=== PATIENT | male | born 2005 | race Caucasian/White ===

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

== ENCOUNTER 2025-01-19 17:59 | Emergency (ER) | payer BC, SELFPAY ==
[2025-01-19 18:04] VITALS: BP 143/59; PULSE 124; RESP 20; TEMP 36.6; O2SAT 98; BMI 22.0
--- NOTE | 2025-01-19 18:16 | ED.GENADULT ---
HPI - General Adult General Chief complaint: Ear Problems Stated complaint: rt ear pain Time Seen by Provider: 01/19/25 18:13 Source: patient, RN notes reviewed and old records reviewed Mode of arrival: ambulatory Limitations: no limitations History of Present Illness ED Provider: Natalie SMITH narrative: 19-year-old male presents for evaluation of right ear pain. He reports that he was swimming yesterday His pain so when he woke up this morning. He has pain behind his right ear. He denies any drainage from the ear He denies sticking anything in the ear Denies any fevers or chills Related Data Previous Rx's ?Medication ?Instructions ?Recorded amoxicillin 875 mg-potassium 1 tab PO Q12H #20 tabs 01/19/25 clavulanate 125 mg tablet ciprofloxacin HCl 0.2 % ear drops 5 drp otic (ears) Q12H 7 days #14 01/19/25 in a dropperette ea Allergies Allergy/AdvReac Type Severity Reaction Status Date / Time No Known Allergies Allergy Verified 01/19/25 18:10 [No Known Allergies*] Review of Systems Constitutional: Constitutional: Denies body ache(s), Denies chills and Denies fever(s) ENT: Denies ear discharge, Reports otalgia and Denies sore throat Cardiovascular: Cardiovascular: Denies chest pain and Denies dyspnea Respiratory: Respiratory: Denies cough and Denies dyspnea Musculoskeletal: Musculoskeletal: Denies back pain PMFSH Social History Social History Advance Directives: No Advance Directives Information Provided: No Physical Exam ED Vital Signs: Vital Signs - 24 hr 01/19/25 18:04 01/19/25 18:19 Temperature 97.8 F 97.8 F Pulse Rate 124 H 124 H Respiratory Rate 20 20 Blood Pressure 143/59 H 143/59 H Pulse Oximetry 98 98 Oxygen Delivery Method Room Air Room Air BMI result Body Mass Index 22.0 Const General: healthy appearing, comfortable, no acute distress, alert and awake Nutritional Appearance: well nourished Orientation/consciousness: patient oriented x3 HENMT Other: The patient has no significant periauricular edema but does have some right mastoid tenderness. The right external ear canal has a small abrasion with dried blood in the ear canal. No significant edema or inflammation to the external ear canal on right. There was no otorrhea. The right tympanic membrane is edematous, erythematous and bulging Head: Yes normocephalic and Yes atraumatic Ears: TM normal on the left Eyes Eyelids: Yes eyelids normal Conjunctivae: conjunctivae normal Sclerae: sclerae normal Corneas: corneas normal Pupils: Equal, round and reactive pupils present EOM: EOMs intact bilaterally Neck Neck: Yes full ROM Resp Effort & Inspection: normal respiratory effort, able to speak in complete sentences and not labored Skin General skin exam: elasticity normal Neuro General: patient oriented x3 Cranial nerves: Yes Equal, round and reactive pupils present and Yes Bilaterally intact EOM present Cognition (Neuro): normal cognition Extrem Other: Moving all extremities well without any obvious deformities Medical Decision Making Medical Decision Making MDM Narrative: 19-year-old male presents for evaluation of right ear pain. He was swimming yesterday and has some mastoid tenderness which would indicate otitis externa, however his right tympanic membrane is visualized as erythematous and bulging. We will treat with both Augmentin and ciprofloxacin otic drops Differential Diagnosis Differential Diagnoses: The differential diagnosis associated with the presentation includes Otitis media Otitis externa Mastoiditis Middle ear effusion Discharge Plan Discharge Clinical Impression: Ear pain, right Patient Disposition: Home, Self-Care Instructions: Swimmer's Ear (ED) Additional Instructions: You have an ear infection on the right ear. It is difficult to determine if it is an outer ear or inner ear infection Therefore use the ear drops as well as the antibiotic pills as prescribed Do not stick anything in your ear, including Q-tips Prescriptions: New amoxicillin-pot clavulanate 875-125 mg tablet 1 tab PO Q12H Qty: 20 0RF ciprofloxacin HCl 0.2 % dropperette 5 drp otic (ears) Q12H 7 Days Qty: 14 0RF Interventions: ED Discharge Assessment Last Done: 01/19/25 18:19 Discharge Date/Time: 01/19/25 18:30 Print Language: Yoruba
[2025-01-19 18:19] VITALS: BP 143/59; PULSE 124; RESP 20; TEMP 36.6; O2SAT 98
== END 2025-01-19 18:30 | disposition home or self-care (01) ==
PROVIDERS: Emergency Provider Emergency Medicine; PCP Pediatrics
DX: H92.01 Otalgia, right ear (principal)
CPT/HCPCS: 99282; 99283

== ENCOUNTER 2025-01-30 15:57 | Outpatient (REF) | payer BC, SELFPAY ==
--- OUTSIDE RECORDS SUMMARY | 2025-01-30 17:25 | XMS_ITS | Clinical Summary ---
Author Organization [facility] Address [address] [place] [address] Care Team Providers Care Accounting Lecturer Name Role Phone Cathy Lino MD Primary Care Provider [phone] Source Comments PLEASE NOTE, if this patient is a minor, it may be UNLAWFUL to discuss sensitive information that is contained in these records (such as FAMILY PLANNING, MENTAL HEALTH or SUBSTANCE ABUSE) with the minor patient's parent or other person without the patient's specific authorization.[facility] Allergies No known active allergies Active Problems Problem Noted Date Diagnosed Date Mild intermittent asthma without complication (H HS-HCC) 07/20/2016 Overview (07/20/2016): Exposure to second hand smoke Immunizations Immunization Administration Dates Next Due DTAP (DAPTACEL),5 PERTUSSIS ANTIGENS 01/2008,08/13/2005,04/02/2004,01/18,2003 HEP B, PED/ADOL 04/02/2004,01/19/2004,2003 Hib (PRP-T) 08/13/2005,01/19/2004,2003 INFLUENZA, SEASONAL, INJECTA BLE, PRESERVATIVE FREE 09/14/2014 IPV (IPOL) 10/14/2007, 4,01/19/2004,09/21 MENINGOCOCCAL MCV4P (MENACTRA) 09/14/2014 MMR (MMR II/Priorix) 10/14/2007,10/02/2004 PNEUMOCOCCAL CONJUGATE PCV 7 04/02/2004,01/19/20 04,2003 TDAP 09/14/2014 Varicella (Varivax), Live Vaccine 12/27/2007, Social History Tobacco Use Types Packs/Day Years Used Date Smoking Tobacco: Passive Smo ke Exposure - Never Smoker Smokeless Tobacco: Never Comments:mother Alcohol Use Standard Drinks/Week Comments No 0 (1 standard drink = 0.6 oz pur e alcohol) Social Connections Answer Date Recorded Connectedness 0 04/28/2024 Financial Resource Strain Answer Date R ecorded Financial Resource Strain 0 2022 Stress Answer Date Recorded Stress 0 10/31/2022 Physical Activity Answer Date Recorded Physical Activity 0 10/31/2022 Food Insecurity Answer Date Recorded Food 0 05/05/2024 Transportation Needs Answer Date Record ed Transportation 0 10/31/2022 Housing Stability Answer Date Recorded Housing 0 10/31/2022 Safety and Environment Answer Date Carlos rded Safety 0 10/31/2022 Utilities Answer Date Recorded Utilities 0 10/31/2022 Employment Answer Date Recorded Stress 0 04/28/2024 Sex and Gender Information Value Date Recorded Sex Assigned at Not on file Legal Sex Male 6:45 AM PST Gender Identity Not on file Sexual Orientation Not on file Last Filed Vital Signs Vital Sign Reading Time Taken Comments Blood Pressure 100/60 09/14/2014 1:50 PM EST Pulse 84 09/14/2014 1:50 PM EST Temperature 37.2 C (99 F) 09/14/2014 1:50 PM EST Respiratory Rate 14 09/14/2014 1:50 PM EST Oxygen Saturation - - Inhaled Oxygen Concentration - - Weight 32.7 kg (72 lb) 09/14/2014 1:50 PM EST Height 137.2 cm (4' 6 ) 09/14/2014 1:50 PM EST Body Mass Index 17.36 09/14/2014 1:50 PM EST Plan of Treatment Health Maintenance Due Date Last Done Comments Anxiety Screening 2003 Hepatitis C Screening 2003 Tobacco Screening 2003 Hypertension Screening (#1) 09/13/2017 HIV Screening 2018 Imm-HPV (1 - Male 3-dose series) 2018 Imm-Pneumococcal (1 of 2 - PCV) 2022 04/02/2004, 01/19/2004, 2003 Ppt-[id number]-21 ( - season) 2024 Alcohol and Drug Screen 08/10/2024 09/14/2014 Depression Annual Screen 08/10/2024 09/14/2014 Imm-DTaP/Tdap/Td (7 - Td or Tdap) 09/14/2024 09/14/2014, 10/14/2007, 08/13/2005, Additional history exists Imm-Influenza (Season Ended) 2025 09/14/2014 Imm-Hepatitis B Completed 04/02/2004, 01/08, 2003 Imm-Varicella Completed 12/27/2007, 10/02/2004 Imm-Hepatitis A Aged Out No longer el igible based on patient's age to complete this topic Insurance [place]ICA[place] Care Teams Accounting Lecturer Relationship Specialty Start Date End Date Cathy Lino MD [address] [place] [id number] PCP - General 04/26/18
[2025-01-31 08:13] LABS: HBS Num1 1.22 mIU/mL (0-7.99); HBc Num1 0.08 S/CO (0.00-0.79); Hepatitis A Antibody IgM 0.16 Index (0-0.79); Hepatitis B Core Antibody Nonreactive (Nonreactive); ~HepC Num1 0.19 S/CO (0.00-0.79); ~Hepatitis A Antibody IgM Nonreactive (Nonreactive); ~Hepatitis B Surface Antibody NONREACTIVE (Nonreactive)
[2025-01-31 08:14] LABS: HBsAGNum1 0.65 S/CO (0.00-0.99); HIV AB/AG Nonreactive (Nonreactive); HIV Num 1 0.06 S/CO (0.00-0.99); Hepatitis B Surface Antigen Negative (Negative); ~Hepatitis C Antibody Nonreactive (Nonreactive)
[2025-01-31 08:24] LABS: Syphilis Screen Nonreactive (Nonreactive)
[2025-01-31 13:54] LABS: CT PCR NOT DETECTED (Not Detect.); NG PCR NOT DETECTED (Not Detect.)
== END 2025-01-30 15:58 | disposition home or self-care (01) ==
LOC: HO.HHCL 15:57
PROVIDERS: Visit Provider Registered Nurse
DX: R36.9 Urethral discharge, unspecified (principal); Z11.3 Encounter for screening for infections with a predominantly sexual mode of transmission
CPT/HCPCS: 36415; 86704; 86706; 86709; 86780; 86803; 87340; 87389; 87491; 87591